=== PATIENT | female | born 1950 ===

== ENCOUNTER 2025-02-23 06:44 | Day surgery (SDC) | payer OTHER ==
[2025-02-21 09:48] LABS: Absolute Eosinophils 0.1 K/uL (0-0.5); Absolute Lymphocytes (CBC) 1.9 K/uL (0.7-4.9); Absolute Monocytes 0.5 K/uL (0.1-1.3); Absolute Neutrophil 3.5 K/uL (1.8-8.0); Basophils % 0.7 % (0-1.3); Eosinophils % 1.3 % (0-4.4); Hematocrit 39.9 % (36.0-45.0); Hemoglobin 13.4 g/dL (12.0-15.0); Lymphocytes % 32.2 % (15.3-44.8); MCH 29.7 pg (27.0-35.0); MCHC 33.5 g/dL (32.0-36.0); MCV 88.7 fL (80-100); MPV 9.1 fL (7.6-11.3); Monocytes % 7.9 % (3.3-12.3); Neutrophils % 57.9 % (41.7-73.7); Nucleated Red Blood Cells % 0.1 % (0-0); Platelets 246 thou/uL (152-406); Red Cell Distribution Width 14.2 % (12.1-15.2)
[2025-02-21 09:59] LABS: Anion Gap 6.2 mEq/L (5.0-15.0); Potassium 4.2 mEq/L (3.5-5.1)
[2025-02-21 10:07] LABS: PT Prothrombin Time 10.6 SECONDS (10-13.0); PTT, Activated Partial Thromb 30.2 SECONDS (27.2-37.4); Protime INR 0.93
--- NOTE | 2025-02-21 12:04 | RAD REPORT ---
EXAMINATION: TWO VIEW CHEST XR CLINICAL INDICATION: Female, 74 years old. [facility] pre op for day surgery. Hypertension TECHNIQUE: 2 view radiographs of the chest were performed. COMPARISON: 12/27/2016 FINDINGS: The lungs are well inflated and clear. No pneumothorax or sizable effusion. The heart is normal in si ze. Mediastinal contours are unremarkable. IMPRESSION: No acute or significant abnormalities.
--- NOTE | 2025-02-21 12:33 | EKG ---
Test Date: 2025-02-21 Test Time: 09:27:39 [employer] Agent: ALEA MEASUREMENT RESULTS: Intervals: Rate: 63 CO: 212 QRSD: 150 QT: 452 QTc: 462 [place]: P: 17 CO: 212 QRS: -31 T: 52 INTERPRETIVE STATEMENTS: Sinus rhythm with 1st degree AV block Left axis deviation Left bundle branch block Abnormal ECG Compared to ECG 12/27/2016 07:12:47 First degree AV block now present Left-axis deviation now present Left bundle-branch block now present Sinus arrhythmia no longer present Right-axis deviation no longer present Electronically Signed On 02-21-25 12:32:22 CDT by Elvis Rolle
[2025-02-23] MEDS ORDERED: propofoL 200 MG/20 ML VIAL IV ONE (06:57)
[2025-02-23] MEDS ORDERED: FENTANYL CITR 100 MCG/2 ML ONE (06:58)
[2025-02-23] MEDS ORDERED: ONDANSETRON 4 MG/2 ML VIAL ONE (06:58)
[2025-02-23] MEDS ORDERED: LIDOCAINE 2% MPF 5 ML VIAL ONE (06:58)
[2025-02-23] MEDS: Ringers Lactate 1,000 ML IV ONE (07:15)
[2025-02-23] MEDS: SCOPOLAMINE HYDROBROMIDE PATCH TD ONE (07:30)
[2025-02-23] MEDS: CEFAZOLIN SODIUM 2 GM/VIAL ONE (08:19)
[2025-02-23] MEDS: BUPIVACAINE 0.25% PF 10 ML VIAL ONE (08:32)
[2025-02-23] MEDS ORDERED: dexAMETHasone 4 MG/ML VIAL ONE (08:40)
--- NOTE | 2025-02-23 08:50 | P.BOP ---
Preoperative diagnosis: Left middle finger trigger digit Postoperative diagnosis: Same Primary procedure: Left middle finger A1 hans release [employer] Sw[employer] Coach: NONE,NONE Estimated blood loss: 2 cc Specimen: None Findings: See dictation Anesthesia: General Complications: None Implants: None Fluids & blood products: Per anesthesia record Transferred to: Recovery Room Condition: Good
--- NOTE | 2025-02-23 08:52 | P.OP ---
Preoperative diagnosis: Left middle finger trigger digit Postoperative diagnosis: Same Primary procedure: Left middle finger A1 hans release Anesthesia: General Estimated blood loss: 2 cc Specimen: None Findings: See dictation Operative Technique: Indication procedure: Patient is a 74-year-old female presented to clinic with signs symptoms and physical exam findings consistent with a left middle finger trigger digit. Patient failed conservative treatment measures. Given the continued pain and difficulties with activities of daily living and she elected proceed with operative treatment including A1 hans release. Description of procedure: After informed consent was obtained, the patient was identified in the preoperative holding area and the left middle finger was sary ed. Patient was then brought back to the operating room, transferred to the operating table in supine fashion and placed under general anesthesia. The left upper extremity was then prepped and draped in usual sterile fashion. A timeout was initiated. The correct patient and procedure were confirmed and identified. The patient did receive her preoperative prophylactic antibiotics. The left up per extremity was exsanguinated using an Esmarch and the tourniquet was inflated to 250 mmHg. Approximately 1.5 cm longitudinal incision was made over the A1 hans of the middle finger. Dissection was then taken down the flexor tendon sheath. It was split in line with the incision. A small portion of the flexor tendon sheath was excised to minimize risk of recurrence. The flexor tendon was then brought out through the incision and there was full excursion of the tendon without triggering noted. The wound was then irrigated thoroughly with normal saline. The skin is approximately using a 5-0 Prolene. Sterile dressings were applied. The tourniquet was let down and the patient was awakened and transferred to PACU in stable condition. Postoperative plan: The patient will follow-up in my clinic in 10 days for wound check and suture removal. The patient will be nonweightbearing of her left upper extremity. Complications: None Implants: None Fluids & blood products: Per anesthesia record Transferred to: Recovery Room Condition: Good
[2025-02-23] MEDS: TRAMADOL HCL 50 MG TAB ONE (10:08)
[2025-02-23 10:56] VITALS: BP 167/69; TEMP 97.4; O2SAT 100
== END 2025-02-23 10:38 | disposition home or self-care (01) ==
LOC: OR 06:44
PROVIDERS: ATTEND Orthopaedic Surgery Sports Medicine
PROC: 0LN80ZZ Release Left Hand Tendon, Open Approach (ICD-10-PCS; principal; 2025-02-23 08:00)
DX: M65.332 Trigger finger, left middle finger (principal); M25.542 Pain in joints of left hand
CPT/HCPCS: 93005; 85025; 80048; 36415; 85610; 85730; 71046; 26055; J2704; J1100; J2003; J3010; J2405; J7120